=== PATIENT | female | born 1970 | race Hispanic/Latino ===

== ENCOUNTER 2019-05-02 14:12 | Emergency (ER) | payer BC ==
[2019-05-02 14:23] VITALS: BP 133/89
--- NOTE | 2019-05-02 15:58 | Event Note ---
ED Screening Note ED Screening Note: This initial assessment/diagnostic orders/clinical plan/treatment(s) is/are subject to change based on patients health status, clinical progression and re- assessment by fellow clinical providers in the ED. Further treatment and workup at subsequent clinical providers discretion. Patient/guardian urged not to elope from the ED as their condition may be serious if not clinically assessed and managed. Initial orders include: Pt states that she has been having vaginal bleeding with discomfort x 1 day. She states that she had a full hysterectomy in 07/2018. She further states that she had painful consensual sex 4 days ago with her . <OSWALDO TONY - Last Filed: 05/02/19 15:55> ED Screening Note: This initial assessment/diagnostic orders/clinical plan/treatment(s) is/are subject to change based on patients health status, clinical progression and re- assessment by fellow clinical providers in the ED. Further treatment and workup at subsequent clinical providers discretion. Patient/guardian urged not to elope from the ED as their condition may be serious if not clinically assessed and managed. Initial orders include: <DENNYS KLEIN - Last Filed: 05/02/19 17:24>
[2019-05-02 16:30] LABS: Hematocrit 40.5 % (30.3-42.9); Hemoglobin 14.5 gm/dl (10.1-14.3); Mean Corpuscular HGB Conc 36 % (30-34); Mean Corpuscular Volume 90 fl (79-97); Platelet Count 255 K/mm3 (140-440); Red Blood Count 4.49 M/mm3 (3.65-5.03); Red Cell Distribution Width 13.3 % (13.2-15.2)
[2019-05-02 16:54] LABS: Alanine Aminotransferase 45 units/L (7-56); Albumin 4.9 g/dL (3.9-5); BUN/Creatinine Ratio 17; Blood Urea Nitrogen 10 mg/dL (7-17); Calcium 9.6 mg/dL (8.4-10.2); Hemolysis Index 4
--- NOTE | 2019-05-02 17:20 | Emergency Department Report ---
ED Dysuria HPI - HPI Chief Complaint: Urogenital-Female Stated Complaint: VAG SPOTTING Time Seen by Provider: 05/02/19 16:06 Duration: 1 Day Severity: Mild Symptoms: Dysuria: No, Frequency: No, Suprapubic Pain: No, Flank Pain: No, Fever: No, Hematuria: No, Abdominal Pain: No, Previous UTI's: No Other History: PT HAD HYSTERECTOMY IN JUL. SHE HAD SEX FOR THE FIRST TIME MONDAY AND HAS HAD SOME SPOTTING SINCE. SHE IS FROM [place] ON HER WAY TO [place]. NO ABD PAIN. VAG SPOTTING ONLY. SHE CALLED HER OBGYN WHO TOLD HER IT WAS GRANULATION BUT IF SHE WAS CONCERNED TO STOP AND GET CHECKED. NO FEVER. NO CHILLS. NO DYSURIA. AMBULATORY AND NONTOXIC. ED Review of Systems ROS: Stated complaint: HEAVY BLEEDING Other details as noted in HPI Comment: All other systems reviewed and negative ED Past Medical Hx - Past Medical History Previous Medical History?: Yes Additional medical history: ANXIETY - Surgical History Additional Surgical History: Hysterectomy- 08/18 - Social History Smoking Status: Never Smoker Dysuria Exam - Exam General: Vital signs noted. No distress. Alert and acting appropriately. Exam: Yes Moist Mucous Membranes, No CVA Tenderness, No Abdominal Tenderness, No Rigidity or Guarding Exam: ABD SNT. NO CVA TENDERNESS Labs: Lab Results 05/02/19 05/02/19 Range/Units 16:18 16:18 WBC 9.8 (4.5-11.0) K/mm3 RBC 4.49 (3.65-5.03) M/mm3 Hgb 14.5 H (10.1-14.3) gm/dl Hct 40.5 (30.3-42.9) % MCV 90 (79-97) fl MCH 32 (28-32) pg MCHC 36 H (30-34) % RDW 13.3 (13.2-15.2) % Plt Count 255 (140-440) K/mm3 Sodium 141 (137-145) mmol/L Potassium 3.8 (3.6-5.0) mmol/L Chloride 102.3 (98-107) mmol/L Carbon Dioxide 22 (22-30) mmol/L Anion Gap 21 mmol/L BUN 10 (7-17) mg/dL Creatinine 0.6 L (0.7-1.2) mg/dL Estimated GFR > 60 ml/min BUN/Creatinine Ratio 17 % Glucose 106 H (65-100) mg/dL Calcium 9.6 (8.4-10.2) mg/dL Total Bilirubin 0.20 (0.1-1.2) mg/dL AST 30 (5-40) units/L ALT 45 (7-56) units/L Alkaline Phosphatase 137 H (35-129) units/L Total Protein 8.4 H (6.3-8.2) g/dL Albumin 4.9 (3.9-5) g/dL Albumin/Globulin Ratio 1.4 % ED Course Vital Signs 05/02/19 14:16 Temperature 97.8 F Pulse Rate 90 Respiratory 15 Rate Blood Pressure 133/89 [Right] O2 Sat by Pulse 97 Oximetry ED Medical Decision Making - Lab Data Result diagrams: 05/02/19 16:18 05/02/19 16:18 - Medical Decision Making Labs 05/02/19 05/02/19 16:18 16:18 WBC 9.8 RBC 4.49 Hgb 14.5 H Hct 40.5 MCV 90 MCH 32 MCHC 36 H RDW 13.3 Plt Count 255 Sodium 141 Potassium 3.8 Chloride 102.3 Carbon Dioxide 22 Anion Gap 21 BUN 10 Creatinine 0.6 L Estimated GFR > 60 BUN/Creatinine Ratio 17 Glucose 106 H Calcium 9.6 Total Bilirubin 0.20 AST 30 ALT 45 Alkaline Phosphatase 137 H Total Protein 8.4 H Albumin 4.9 Albumin/Globulin Ratio 1.4 Vital Signs 05/02/19 14:16 Temperature 97.8 F Pulse Rate 90 Respiratory 15 Rate Blood Pressure 133/89 [Right] O2 Sat by Pulse 97 Oximetry HGB NORMAL DISCUSSED FINDINGS WITH PT DC HOME WITH OBGYN FOLLOW UP VSS NON TOXIC AMBULATORY TAKING PO Critical care attestation.: If time is entered above; I have spent that time in minutes in the direct care of this critically ill patient, excluding procedure time. ED Disposition Clinical Impression: Vaginal spotting Disposition: [id number]-01 TO HOME OR SELFCARE Is pt being admited?: No Does the pt Need Aspirin: No Condition: Stable Additional Instructions: FOLLOW UP WITH YOUR OBGYN SOON YOU RETURN HOME AFTER TRIP Referrals: JONNATHAN CUEVAS,ANTHONY Jimenez [Other] - 3-5 Days Time of Disposition: 17:19
[2019-05-02 17:45] LABS: Bilirubin,Urine NEG (Negative); Blood,Urine LG (Negative); Color,Urine Yellow (Yellow); Mucus,Urine FEW /HPF; Protein,Urine <15 mg/dL mg/dL (Negative); Urobilinogen,Urine < 2.0 mg/dL (<2.0)
[2019-05-02 17:46] LABS: WBC,Urine < 1.0 /HPF (0.0-6.0)
== END 2019-05-02 17:20 | disposition home or self-care (01) ==
LOC: ED 14:12
DX: N93.9 Abnormal uterine and vaginal bleeding, unspecified (principal); Z90.710 Acquired absence of both cervix and uterus; Z88.8 Allergy status to other drugs, medicaments and biological substances; Z91.041 Radiographic dye allergy status; Z91.010 Allergy to peanuts; Z88.0 Allergy status to penicillin; Z91.013 Allergy to seafood
CPT/HCPCS: 36415; 80053; 81001; 85027; 99283